=== PATIENT | male | born 1980 | race Caucasian/White ===

== ENCOUNTER 2021-07-28 11:16 | Inpatient (IN) | payer MEDICAID, SELFPAY ==
[~2021-07-28] VITALS: Ht 175.3 cm; Wt 81.6 kg
[2021-07-28 11:23] VITALS: BP_SYST 156
--- NOTE | 2021-07-28 11:26 | NUR ---
AMBULATED TO BED 2, REPORT GIVEN TO NADEEM HERNANDEZ
--- NOTE | 2021-07-28 11:35 | NUR ---
ASSESS PT C/O ABD PAIN DENIES N/V/D ABLE TO EAT AND LUCIO WELL STATED HE HAD ABD PAIN SINCE FRIDAY NO URINARY PROBLEM OVERALL APPEARANCES FAIR DENIES NO PAST MEDICAL HISTORY
[2021-07-28] MEDS ORDERED: NACL 0.9% 1,000 ML IV ONE ×2 (12:00→16:00)
[2021-07-28] MEDS ORDERED: KETOROLAC TROMETHAMINE 30 MG VIAL IVP ONE (12:00)
[2021-07-28 12:16] LABS: BILIRUBIN,URINE NEGATIVE (NEGATIVE); BLOOD, URINE NEGATIVE (NEGATIVE); COLOR,URINE YELLOW (YELLOW); GLUCOSE,URINE NEGATIVE (NEGATIVE); KETONES,URINE NEGATIVE (NEGATIVE); LEUKOCYTE ESTERASE ,URINE NEGATIVE (NEGATIVE); NITRITE, URINE NEGATIVE (NEGATIVE); PROTEIN URINE NEGATIVE (NEGATIVE); UROBILINOGEN,URINE 0.2 (0.2-1.0)
[2021-07-28 12:18] LABS: CLARITY/URINE CLEAR (CLEAR)
[2021-07-28 12:22] LABS: BASOPHILS # (AUTO) 0.1 K/uL (0.0-0.2); BASOPHILS % (AUTO) 0.4 % (0.0-2.0); EOSINOPHILS # (AUTO) 0.1 K/uL (0.0-0.4); EOSINOPHILS % (AUTO) 0.6 % (0.0-4.0); HEMATOCRIT 43.2 % (36-54); HEMOGLOBIN 14.7 g/dL (14.0-18.0); LYMPHOCYTES # (AUTO) 1.3 K/uL (1.0-5.5); LYMPHOCYTES % (AUTO) 9.4 % (20.5-51.5); MEAN CORPUSCULAR HEMOGLOBIN 30 pg (27-31); MEAN CORPUSCULAR HGB CONC 34 % (32-36); MEAN CORPUSCULAR VOLUME 88 fL (79.0-98.0); MONOCYTES # (AUTO) 1.2 K/uL (0.0-1.0); MONOCYTES % (AUTO) 8.9 % (1.7-9.3); NEUTROPHILS # (AUTO) 11.3 K/uL (1.8-7.7); NEUTROPHILS % (AUTO) 80.7 % (40.0-70.0); PLATELET COUNT (AUTO) 387 K/uL (130-430); RED CELL DISTRIBUTION WIDTH 12.6 % (9.0-15.0); WHITE BLOOD COUNT (AUTO) 13.9 K/uL (4.8-10.8)
[2021-07-28 12:32] LABS: CALCIUM 9.7 mg/dL (8.4-11.0); CREATININE 1.14 mg/dL (0.55-1.30); POTASSIUM 3.6 mmol/L (3.5-5.1)
[2021-07-28 12:37] LABS: ALBUMIN 3.7 g/dL (3.4-4.8)
[2021-07-28 12:40] LABS: TOTAL BILIRUBIN 1.9 mg/dL (0.0-1.0)
[2021-07-28] MEDS ORDERED: metroNIDAZOLE 500 mg/NS 100 ML IV ONE (13:30)
--- NOTE | 2021-07-28 14:00 | NUR ---
PT RESTING QUIETLY ON HIS CELLPHONE OVERALL CONDITION STABLE WITHOUT INCIDENT
--- NOTE | 2021-07-28 14:24 | NUR ---
ALBERTO, [facility], CALLED BACK AND STATED OKAY TO ADMIT PER ED ADMITTING, NICK
[2021-07-28] MEDS ORDERED: PIPERACILLIN/TAZO 3.375 GM in NS 50 ML IV ONE (14:45)
[2021-07-28] MEDS ORDERED: ONDANSETRON HCL 4 MG/2 ML VIAL IVP PRN (15:30)
[2021-07-28] MEDS ORDERED: ACETAMINOPHEN 500 MG TABLET PO PRN (15:30)
[2021-07-28] MEDS ORDERED: KETOROLAC TROMETHAMINE 30 MG VIAL IVP PRN (15:30)
[2021-07-28] MEDS ORDERED: ZOLPIDEM TARTRATE 5 MG TABLET PO PRN (15:30)
[2021-07-28] MEDS ORDERED: guaiFENesin/DEXTROMETHORPHAN 10 ML UDC PO PRN (15:30)
[2021-07-28] MEDS ORDERED: DOCUSATE SODIUM 100 MG/10 ML UDC PO PRN (15:30)
[2021-07-28] MEDS ORDERED: HYDROcodone/ACETAMIN 7.5-325 MG TAB PO PRN (15:30)
[2021-07-28] MEDS ORDERED: MORPHINE 2 MG/ML INJ. SYRINGE IVP PRN (15:30)
--- NOTE | 2021-07-28 15:33 | NUR ---
DR. GARCIA SPEAKING WITH DR. LLOYD REGARDING PT STATUS
[2021-07-28] MEDS ORDERED: PIPERACILLIN/TAZOBACTAM 3.375 GM/VIAL (ZOSYN) IV ONE (15:50)
[2021-07-28] MEDS ORDERED: MORPHINE 4 MG INJ. 4 MG/ML VIAL IVP ONE (16:00)
--- NOTE | 2021-07-28 16:30 | NUR ---
PT WAS MED TIME ONE WITH MORPHINE 2MG X2 AND ZOFRAN FOR MID ABD PAIN DENIES ALLERGY MEDS TEACHING GIVEN COMFORT AND SAFETY MAINTAINED PT IS AWARE OF HIS ADMISSION TO THE HOSPITAL AND WHY
--- NOTE | 2021-07-28 17:17 | NUR ---
PT IS BEING TRANSFER TO M/S CONDITION STABLE DENIES PAIN/DISCOMFORT AT THIS TIME
--- NOTE | 2021-07-28 17:32 | NUR ---
ADMISSION NOTES, PT RECEIVED FROM E.R. FOR CHOLEDOLITHIASIS RODYER THE CARE OF DR YIN. PT EDUCATED ON THE USE OF CALL LIGHT TV AND BED CONTROLS.
--- NOTE | 2021-07-28 17:38 | NUR ---
CONSULTATION PAGED/CALLED Reason for Consultation: CHOLEDOCHOLITHIASIS Person Who was Notified: DR GARCIA Consulting Physician: [place] [employer] ATTENDANT DR GRACIA Insurance Verification Representative Specialty: GENERAL SURG Ordering Physician: HUMPHREY
[2021-07-28 17:52] VITALS: BP_SYST 153
[2021-07-28] MEDS ORDERED: FLU VACC QS2021-22(6MOS UP)/PF 0.5 ML/SYR SYRINGE I.M. PRN (18:00)
[2021-07-28] MEDS: D5NS 1,000 ML IV SCH ×2 (18:05→22:55)
[2021-07-28] MEDS ORDERED: NALOXONE HCL 0.4 MG/ML AMP (NARCAN) IVP PRN (19:00)
[2021-07-28] MEDS ORDERED: HYDROmorphone 1 MG/ML INJ. CARTRIDGE IVP ONE (19:00)
--- NOTE | 2021-07-28 19:06 | NUR ---
HIGH ALERT NOTE: Called Dr. YIN back at [phone] identified within the medical roster to verify physician authenticity.
--- NOTE | 2021-07-28 19:30 | NUR ---
Pt requesting medicine for 1010 pain. Day nurse requested 1x med coverage from currently pending approval from pharmacy.
[2021-07-28 20:00] VITALS: BP_SYST 148
[2021-07-28] MEDS ORDERED: HYDROmorphone 1 MG/ML INJ. CARTRIDGE ONE (20:14)
--- NOTE | 2021-07-28 21:30 | NUR ---
Pt sleeping after medication administration. Parents visited to check up on son. Parents updated and will check back in the morning on information regarding surgery.
[2021-07-29] VITALS: BP_SYST 138
[2021-07-29] MEDS: D5NS 1,000 ML IV SCH ×3 (06:59→22:19)
[2021-07-29 07:14] LABS: BASOPHILS % (AUTO) 0.5 % (0.0-2.0); EOSINOPHILS # (AUTO) 0.1 K/uL (0.0-0.4); HEMOGLOBIN 13.8 g/dL (14.0-18.0); LYMPHOCYTES # (AUTO) 1.1 K/uL (1.0-5.5); LYMPHOCYTES % (AUTO) 14.1 % (20.5-51.5); MEAN CORPUSCULAR HEMOGLOBIN 31 pg (27-31); MEAN CORPUSCULAR HGB CONC 34 % (32-36); MEAN CORPUSCULAR VOLUME 89 fL (79.0-98.0); MONOCYTES # (AUTO) 1.2 K/uL (0.0-1.0); MONOCYTES % (AUTO) 16.3 % (1.7-9.3); NEUTROPHILS # (AUTO) 5.2 K/uL (1.8-7.7); NEUTROPHILS % (AUTO) 68.1 % (40.0-70.0); PLATELET COUNT (AUTO) 315 K/uL (130-430); RED BLOOD CELL COUNT(AUTO) 4.49 MIL/uL (4.2-6.2); RED CELL DISTRIBUTION WIDTH 12.6 % (9.0-15.0); WHITE BLOOD COUNT (AUTO) 7.6 K/uL (4.8-10.8)
[2021-07-29 07:58] LABS: PROTHROMBIN TIME 10.9 SECS (9.5-12.5)
[2021-07-29 08:00] VITALS: BP_SYST 110
[2021-07-29 08:35] LABS: CALCIUM 8.5 mg/dL (8.4-11.0); CREATININE 1.06 mg/dL (0.55-1.30); FREE T4 (FREE THYROXINE) 1.2 ng/dl (0.8-1.5); PHOSPHORUS 3.1 mg/dL (2.7-4.5); POTASSIUM 3.7 mmol/L (3.5-5.1); THYROID STIMULATING HORMONE 0.38 uIu/mL (0.36-3.74)
[2021-07-29] MEDS: PANTOPRAZOLE SODIUM 40 MG TAB PO SCH (09:00)
[2021-07-29] MEDS ORDERED: POTASSIUM CHLORIDE 20 MEQ TAB.PRT.SR PO PRN (09:00)
--- NOTE | 2021-07-29 09:00 | NUR ---
DR GARCIA WAS HERE, MD ORDERED FOR MRI OF ABD.
--- NOTE | 2021-07-29 09:30 | NUR ---
PT SLEEPING COMFORTABLY IN BED.
[2021-07-29 16:00] VITALS: BP_SYST 131
--- NOTE | 2021-07-29 18:25 | NUR ---
PT HAS BEEN STABLE THE WHOLE SHIFT, DENIES PAIN THE WHOLE DAY, NO PAIN MED GIVEN. PT AWARE OF THE MRI WITH CONTRAST IN AM. GIVEN CONSENT AND CHECKLIST FORM FOR PT TO FILL UP. WILL ENDORSE TO NIGHT NURSE.
[2021-07-29 20:13] LABS: BARBITURATE, URINE NEGATIVE (NEG <=200); BENZODIAZEPINE, URINE NEGATIVE (NEG <=150); CANNABINOID, URINE NEGATIVE (NEG <=50); COCAINE, URINE NEGATIVE (NEG <=150); METHAMPHETAMINES SCREEN,URINE NEGATIVE (NEG <=500); OPIATE, URINE POSITIVE (NEG <=100); PHENCYCLIDINE SCREEN,URINE NEGATIVE (NEG <=25); URINE AMPHETAMINE NEGATIVE (NEG <=500); URINE METHADONE NEGATIVE (NEG <=200); URINE OXYCODONE SCREEN NEGATIVE (NEG <=100); URINE PROPOXYPHENE SCREEN NEGATIVE (NEG <=300)
[2021-07-29 20:14] LABS: UR TRICYCLIC ANTIDEPRESSANTS NEGATIVE (NEG <=300)
[2021-07-29 20:15] VITALS: BP_SYST 127
--- NOTE | 2021-07-29 20:15 | NUR ---
opening note patient watching T.V comfortable in bed. vitals taken noted to be within normal limits. patient stated that he would like to take a shower.
[2021-07-29 20:34] LABS: ALBUMIN 2.9 g/dL (3.4-4.8); BILIRUBIN,DIRECT 3.3 mg/dL (0.0-0.3); TOTAL BILIRUBIN 4.5 mg/dL (0.0-1.0)
--- NOTE | 2021-07-29 22:30 | NUR ---
patient shower patient was disconnected for his I.V and site was covered. tolerated shower with no signs of syncope noted. I.V was reconnected and patient resting in bed
[2021-07-30 00:10] VITALS: BP_SYST 131
--- NOTE | 2021-07-30 05:01 | NUR ---
ambulate to restroom Patient awake and amulated to restroom. IVF infusing well, no s/sx of infiltration noted. He has no further needs.
[2021-07-30 06:48] LABS: EOSINOPHILS # (AUTO) 0.2 K/uL (0.0-0.4); EOSINOPHILS % (AUTO) 2.4 % (0.0-4.0); HEMATOCRIT 39.8 % (36-54); HEMOGLOBIN 13.6 g/dL (14.0-18.0); LYMPHOCYTES # (AUTO) 1.3 K/uL (1.0-5.5); LYMPHOCYTES % (AUTO) 18.8 % (20.5-51.5); MEAN CORPUSCULAR HEMOGLOBIN 30 pg (27-31); MEAN CORPUSCULAR HGB CONC 34 % (32-36); MEAN CORPUSCULAR VOLUME 89 fL (79.0-98.0); MONOCYTES # (AUTO) 0.7 K/uL (0.0-1.0); MONOCYTES % (AUTO) 9.5 % (1.7-9.3); PLATELET COUNT (AUTO) 320 K/uL (130-430); RED BLOOD CELL COUNT(AUTO) 4.47 MIL/uL (4.2-6.2)
--- NOTE | 2021-07-30 08:00 | NUR ---
AM NOTES KEPT NPO/ FOR MRI TODAY, AMBULATORY, DENIES PAIN.
[2021-07-30 08:07] LABS: BASOPHILS % (AUTO) 0.5 % (0.0-2.0); NEUTROPHILS % (AUTO) 68.8 % (40.0-70.0)
[2021-07-30 08:08] LABS: NEUTROPHILS # (AUTO) 4.9 K/uL (1.8-7.7)
[2021-07-30 08:22] LABS: ALBUMIN 2.8 g/dL (3.4-4.8); CALCIUM 8.6 mg/dL (8.4-11.0); CREATININE 0.97 mg/dL (0.55-1.30); POTASSIUM 3.9 mmol/L (3.5-5.1)
[2021-07-30 09:28] VITALS: BP_SYST 157
[2021-07-30] MEDS: D5NS 1,000 ML IV SCH ×3 (09:32→19:01)
--- NOTE | 2021-07-30 12:00 | NUR ---
MRI DONE BACK FROM MRI.
[2021-07-30 12:28] VITALS: BP_SYST 135
[2021-07-30] MEDS: PANTOPRAZOLE SODIUM 40 MG TAB PO SCH (12:33)
--- NOTE | 2021-07-30 16:07 | NUR ---
Dietitian Recommendations * Consider advance diet if/when medically appropriate LP, RD Please refer to Nutrition Assessment for details. Addendum: 07/30/21 at [address] Amended: Links added.
[2021-07-30 17:00] VITALS: BP_SYST 130
--- NOTE | 2021-07-30 18:00 | NUR ---
LEFT MESSAGE TO DR GARCIA RE MRCP LEFT MESSAGE TO DR GARCIA'S VOICE MAIL REGARDING MRCP RESULTS AND PLAN FOR SURGERY.
--- NOTE | 2021-07-30 19:43 | NUR ---
CLOSING NOTES BOTH EYES ARE RED, PATIENT BROUGHT HIS CLEAR EYE DROPS FOR CLEAR EYES WITH DOCTORS ORDERED. FAMILY AND PATIENT THAT WAITING FOR MD TO CALLBACK RE PLAN FOR SURGERY.
[2021-07-30 20:00] VITALS: BP_SYST 141
--- NOTE | 2021-07-30 21:03 | NUR ---
Dr. Jj Andrews Called in to inform he will be taking patient to surgery tomorrow afternoon. He provided orders; He may be clear liquid till 10am, CMP in am, Consent to read - Lap sol, khrisl open cholangiogram; TORB
[2021-07-31 00:22] VITALS: BP_SYST 134
[2021-07-31] MEDS: D5NS 1,000 ML IV SCH ×3 (02:31→17:40)
[2021-07-31 07:36] LABS: BASOPHILS # (AUTO) 0.1 K/uL (0.0-0.2); BASOPHILS % (AUTO) 0.9 % (0.0-2.0); EOSINOPHILS # (AUTO) 0.2 K/uL (0.0-0.4); EOSINOPHILS % (AUTO) 2.5 % (0.0-4.0); HEMATOCRIT 42.1 % (36-54); LYMPHOCYTES # (AUTO) 1.5 K/uL (1.0-5.5); MEAN CORPUSCULAR HEMOGLOBIN 30 pg (27-31); MEAN CORPUSCULAR HGB CONC 33 % (32-36); MEAN CORPUSCULAR VOLUME 89 fL (79.0-98.0); MONOCYTES # (AUTO) 0.6 K/uL (0.0-1.0); MONOCYTES % (AUTO) 9.6 % (1.7-9.3); NEUTROPHILS # (AUTO) 3.9 K/uL (1.8-7.7); PLATELET COUNT (AUTO) 386 K/uL (130-430); RED BLOOD CELL COUNT(AUTO) 4.72 MIL/uL (4.2-6.2); WHITE BLOOD COUNT (AUTO) 6.1 K/uL (4.8-10.8)
[2021-07-31 07:50] LABS: ALBUMIN 2.8 g/dL (3.4-4.8); CALCIUM 8.5 mg/dL (8.4-11.0); CREATININE 0.93 mg/dL (0.55-1.30); POTASSIUM 3.7 mmol/L (3.5-5.1); TOTAL BILIRUBIN 1.2 mg/dL (0.0-1.0)
[2021-07-31 08:00] VITALS: BP_SYST 136
--- NOTE | 2021-07-31 08:00 | NUR ---
Opening notes: Received patient awake, resting in bed. No distress and nonlabored breathing on room air. Presently denies pain, reports abdominal discomfort though does not want pain med. IVF infusing via IV to L wrist, no sign of infiltration noted. Bed is locked on lowest position, side rails up 2x and call light w/in reach. He has been ambulating with steady gait to restroom and does not have bed alarm on.
[2021-07-31] MEDS: PANTOPRAZOLE SODIUM 40 MG TAB PO SCH (09:02)
[2021-07-31 11:13] VITALS: BP_SYST 136
[2021-07-31] MEDS ORDERED: [UNRECOGNIZED DRUG - OTHER] OP PRN (15:00)
[2021-07-31] MEDS ORDERED: CLEAR EYES OP PRN (15:00)
--- NOTE | 2021-07-31 17:20 | NUR ---
Pt off unit: Pt off unit for procedure, VVS, has been NPO, IV intact.
[2021-07-31] MEDS ORDERED: ONDANSETRON HCL 4 MG/2 ML VIAL IVP ONE (17:34)
[2021-07-31] MEDS ORDERED: BUPIVACAINE /PF 0.25% 30 ML VIAL INJ ONE (17:34)
[2021-07-31] MEDS ORDERED: HYDROmorphone 2 MG/ML VIAL IVP ONE (17:34)
[2021-07-31] MEDS ORDERED: SUCCINYLCHOLINE CHLORIDE 20 MG/ML(QUELICIN) IVP ONE (17:34)
[2021-07-31] MEDS ORDERED: METOCLOPRAMIDE HCL 10 MG/2 ML VIAL IVP ONE (17:34)
[2021-07-31] MEDS ORDERED: MIDAZOLAM HCL 5 MG/5 ML VIAL IVP ONE (17:34)
[2021-07-31] MEDS ORDERED: PHENYLEPHRINE HCL 10 MG/ML VIAL (NEOSYNEPHRINE) IV ONE (17:34)
[2021-07-31] MEDS ORDERED: LR 1,000 ML IV.SOLN IV ONE (17:34)
[2021-07-31] MEDS ORDERED: LIDOCAINE 1% 10 MG/ML, 20 ML MDV INJ ONE (17:34)
[2021-07-31] MEDS ORDERED: LIDOCAINE/EPI 1% 1:100000 20 ML VIAL INJ ONE (17:34)
[2021-07-31] MEDS ORDERED: fentaNYL CITRATE 250 MCG/5 ML AMP IV ONE (17:34)
[2021-07-31] MEDS ORDERED: PROPOFOL 200MG/ 20ML VIAL (DIPRIVAN) IV ONE (17:34)
[2021-07-31] MEDS ORDERED: KETOROLAC TROMETHAMINE 30 MG VIAL IVP ONE (17:34)
[2021-07-31] MEDS ORDERED: SEVOFLURANE 15 MIN GAS INH ONE (17:34)
[2021-07-31] MEDS ORDERED: NS 1000 ML IV.SOLN IV ONE (17:34)
[2021-07-31] MEDS ORDERED: GLYCOPYRROLATE 0.2 MG/ML VIAL IJ ONE (17:34)
[2021-07-31] MEDS ORDERED: NS IRRIG SOLN 1000 ML IR ONE (17:34)
[2021-07-31] MEDS ORDERED: HYDROcodone/ACETAMIN 5-325 MG TAB (NORCO/ VICODIN) PO PRN (18:00)
[2021-07-31] MEDS ORDERED: HYDROmorphone 1 MG/ML INJ. CARTRIDGE IVP PRN (18:15)
[2021-07-31] MEDS ORDERED: ONDANSETRON HCL 4 MG/2 ML VIAL IVP PRN (18:15)
[2021-07-31] MEDS ORDERED: KETOROLAC TROMETHAMINE 30 MG VIAL IVP PRN (18:15)
[2021-07-31] MEDS ORDERED: HYDROmorphone 2 MG/ML VIAL IVP PRN (18:15)
--- NOTE | 2021-07-31 18:47 | NUR ---
Closing notes: Pt still off floor, will endorse to drum builder.
[2021-07-31 21:15] VITALS: BP_SYST 136
--- NOTE | 2021-07-31 21:15 | NUR ---
RECEIVED REPORT FROM DONNA, PATIENT FROM PACU, S/P OPEN CHOLECYSTECTOMY. PATIENT IS AWAKE, ALERT AND ORIENTED X4, VERBALLY RESPONSIVE, NO ACUTE DISTRESS NOTED. DRESSING TO RIGHT SIDE ABDOMEN CLEAN, DRY, AND INTACT. NOTED KHADRA DRAINAGE WITH SEROUS SANGUINEOUS ABOUT 10 CC. PATIENT DENIES ANY PAIN OR DISCOMFORT AT THIS TIME. STARTED PATIENT ON ICE CHIP WHICH HE TOLERATED IT WELL. WILL CONTINUE TO MONITOR VS, PAIN, OR SURGICAL SITE. CALLED FATHER TO INFORM HIM OF THE PATIENT'S CONDITION AND BACK TO THE UNIT. VSS.
[2021-08-01] MEDS: MORPHINE 4 MG INJ. 4 MG/ML VIAL IVP PRN ×2 (01:13→06:20)
[2021-08-01] MEDS: KETOROLAC TROMETHAMINE 30 MG VIAL IVP SCH ×4 (01:17→22:16)
[2021-08-01] MEDS: GABAPENTIN 300 MG CAPSULE PO SCH ×4 (01:17→22:17)
[2021-08-01] MEDS ORDERED: PIPERACILLIN/TAZOBACTAM 3.375 GM/VIAL (ZOSYN) IV ONE ×2 (01:22→06:50)
[2021-08-01] MEDS: D5NS 1,000 ML IV SCH ×3 (01:29→17:11)
[2021-08-01] MEDS: PIPERACILLIN/TAZO 3.375/DEX-IS 50 ML IV SCH ×4 (01:38→17:11)
[2021-08-01 06:53] LABS: BASOPHILS % (AUTO) 0.3 % (0.0-2.0); EOSINOPHILS % (AUTO) 0.1 % (0.0-4.0); HEMATOCRIT 36.6 % (36-54); HEMOGLOBIN 12.4 g/dL (14.0-18.0); LYMPHOCYTES # (AUTO) 1.1 K/uL (1.0-5.5); LYMPHOCYTES % (AUTO) 11.9 % (20.5-51.5); MEAN CORPUSCULAR HEMOGLOBIN 30 pg (27-31); MEAN CORPUSCULAR HGB CONC 34 % (32-36); MEAN CORPUSCULAR VOLUME 89 fL (79.0-98.0); MONOCYTES # (AUTO) 0.9 K/uL (0.0-1.0); MONOCYTES % (AUTO) 9.2 % (1.7-9.3); NEUTROPHILS # (AUTO) 7.5 K/uL (1.8-7.7); NEUTROPHILS % (AUTO) 78.5 % (40.0-70.0); PLATELET COUNT (AUTO) 382 K/uL (130-430); RED BLOOD CELL COUNT(AUTO) 4.11 MIL/uL (4.2-6.2); WHITE BLOOD COUNT (AUTO) 9.5 K/uL (4.8-10.8)
[2021-08-01] MEDS: ACETAMINOPHEN 500 MG TABLET PO SCH ×4 (07:37→22:17)
[2021-08-01 07:45] LABS: CALCIUM 8.4 mg/dL (8.4-11.0); CREATININE 1.1 mg/dL (0.55-1.30); POTASSIUM 3.4 mmol/L (3.5-5.1)
[2021-08-01 08:00] VITALS: BP_SYST 120
--- NOTE | 2021-08-01 09:04 | NUR ---
OPENING NOTES: PATIENT EATING BREAKFAST. HOB ELEVATED. BREATHING EVEN AND NON LABORED TO RA. IV INFUSING WELL. KHADRA DRAIN SECURED. SPAR MACHINE OPERATOR DRAINED 40 ML. BED LOCKED, ALARM ON AND IN LOWEST POSITION. FALL, SAFETY AND ASPIRATION MEASURES PROVIDED. CALL LIGHT WITHIN REACH
[2021-08-01 10:14] LABS: ALBUMIN 2.6 g/dL (3.4-4.8); BILIRUBIN,DIRECT 0.5 mg/dL (0.0-0.3)
[2021-08-01] MEDS: PANTOPRAZOLE SODIUM 40 MG TAB PO SCH (10:16)
[2021-08-01] MEDS: ENOXAPARIN SODIUM 40 MG/0.4 ML SYRINGE SUBCUT SCH (10:18)
[2021-08-01] MEDS: HYDROmorphone 1 MG/ML INJ. CARTRIDGE IM PRN (10:20)
[2021-08-01] MEDS ORDERED: HYDR-3917 PO (13:36)
[2021-08-01 15:58] VITALS: BP_SYST 115
--- NOTE | 2021-08-01 19:30 | NUR ---
CLOSING NOTES: PATIENT RESTING IN BED. NO S/S OF ACUTE DISTRESS NOTED. DENIES ANY DISCOMFORT AT THIS. IV INFUSING WELL. CALL LIGHT WITHIN REACH.
[2021-08-01 20:57] VITALS: BP_SYST 129
[2021-08-02] VITALS: BP_SYST 126
[2021-08-02] MEDS: HYDROmorphone 1 MG/ML INJ. CARTRIDGE IM PRN (00:41)
[2021-08-02] MEDS: D5NS 1,000 ML IV SCH ×4 (00:45→21:35)
[2021-08-02] MEDS: PIPERACILLIN/TAZO 3.375/DEX-IS 50 ML IV SCH ×2 (01:15→07:15)
[2021-08-02 04:00] VITALS: BP_SYST 126
[2021-08-02] MEDS: ACETAMINOPHEN 500 MG TABLET PO SCH ×4 (07:13→21:48)
[2021-08-02] MEDS: KETOROLAC TROMETHAMINE 30 MG VIAL IVP SCH ×3 (07:14→22:00)
[2021-08-02 07:16] LABS: BASOPHILS % (AUTO) 0.4 % (0.0-2.0); EOSINOPHILS # (AUTO) 0.2 K/uL (0.0-0.4); EOSINOPHILS % (AUTO) 2.1 % (0.0-4.0); HEMATOCRIT 33.9 % (36-54); HEMOGLOBIN 11.5 g/dL (14.0-18.0); LYMPHOCYTES # (AUTO) 1.2 K/uL (1.0-5.5); LYMPHOCYTES % (AUTO) 16.3 % (20.5-51.5); MEAN CORPUSCULAR HEMOGLOBIN 31 pg (27-31); MEAN CORPUSCULAR HGB CONC 34 % (32-36); MEAN CORPUSCULAR VOLUME 90 fL (79.0-98.0); MONOCYTES # (AUTO) 0.6 K/uL (0.0-1.0); MONOCYTES % (AUTO) 8.4 % (1.7-9.3); NEUTROPHILS # (AUTO) 5.3 K/uL (1.8-7.7); NEUTROPHILS % (AUTO) 72.8 % (40.0-70.0); PLATELET COUNT (AUTO) 326 K/uL (130-430); RED BLOOD CELL COUNT(AUTO) 3.77 MIL/uL (4.2-6.2); RED CELL DISTRIBUTION WIDTH 13.2 % (9.0-15.0); WHITE BLOOD COUNT (AUTO) 7.3 K/uL (4.8-10.8)
[2021-08-02 08:00] VITALS: BP_SYST 122
[2021-08-02 08:17] LABS: CALCIUM 8.2 mg/dL (8.4-11.0); CREATININE 0.91 mg/dL (0.55-1.30); POTASSIUM 3.1 mmol/L (3.5-5.1)
[2021-08-02] MEDS: GABAPENTIN 300 MG CAPSULE PO SCH ×3 (08:58→21:49)
[2021-08-02] MEDS: PANTOPRAZOLE SODIUM 40 MG TAB PO SCH (08:58)
[2021-08-02] MEDS: ENOXAPARIN SODIUM 40 MG/0.4 ML SYRINGE SUBCUT SCH (09:02)
[2021-08-02] MEDS ORDERED: metroNIDAZOLE 500 MG TABLET PO ONE (10:00)
--- NOTE | 2021-08-02 10:00 | NUR ---
NOTE Dr Whatley on the floor to assess pt. MD was informed that pt's IV came off and pt has no IV at this time. PO antibiotics were requested. MD ordered PO antibiotics.
[2021-08-02 12:00] VITALS: BP_SYST 124
[2021-08-02] MEDS: metroNIDAZOLE 500 MG TABLET PO SCH ×2 (14:53→21:49)
[2021-08-02 16:50] VITALS: BP_SYST 123
--- NOTE | 2021-08-02 17:35 | NUR ---
Note Dr Maine Andrews (surgeon) on the floor to assess pt and to answer questions/concerns at this time.
--- NOTE | 2021-08-02 17:41 | NUR ---
Dr Maine Andrews stated pt can be discharged home, discharge instructions given to pt by .
--- NOTE | 2021-08-02 18:25 | NUR ---
Note Pt got OOB to restroom this afternoon. Pt was encouraged to use IS q1 10X while awake. Abdominal incision dressing CDI all shift. KHADRA drain intact and draining well at RLQ. Pt was checked on q1' and PRN all shift for needs and care. Pt's bed in low position all shift. Pt encouraged to move side to side and sit on side of bed for meals. Pain tolerable all shift. Pt has had no IV all shift. No needs noted. Call light within reach.
[2021-08-02 21:09] VITALS: BP_SYST 138
[2021-08-03 01:33] VITALS: BP_SYST 133
[2021-08-03] MEDS: D5NS 1,000 ML IV SCH (05:00)
[2021-08-03] MEDS: KETOROLAC TROMETHAMINE 30 MG VIAL IVP SCH (06:00)
[2021-08-03] MEDS: metroNIDAZOLE 500 MG TABLET PO SCH (06:52)
[2021-08-03] MEDS: ACETAMINOPHEN 500 MG TABLET PO SCH (06:53)
[2021-08-03 08:15] VITALS: BP_SYST 131
--- NOTE | 2021-08-03 08:15 | NUR ---
INITIAL ROUNDS Received pt AAOX4, no s/s resp distress, no c/o pain or discomfort. Dressing to abd clean dry and intact. Noted KHADRA drain to right abd with minimal amount of pink fluid. Pt instructed on how how to empty the KHADRA drain-teach back done. Pain management, disease process, skin and safety discussed-teach back done. Call light within reach.
[2021-08-03 08:49] VITALS: BP_SYST 131
[2021-08-03] MEDS: GABAPENTIN 300 MG CAPSULE PO SCH (09:21)
[2021-08-03] MEDS: PANTOPRAZOLE SODIUM 40 MG TAB PO SCH (09:21)
[2021-08-03] MEDS: ENOXAPARIN SODIUM 40 MG/0.4 ML SYRINGE SUBCUT SCH (09:24)
--- NOTE | 2021-08-03 11:36 | NUR ---
PATIENT DISCHARGED Patient given medication reconciliation form and D/C instructions. Exit Care explained and provided. Patient verbalized his understanding. MD discussed with patient the results and treatment provided. Ambulatory with steady gait for discharge to home. Patient in stable condition, ID band removed. Patient educated on pain management. All belongings sent with patient. Patient left floor via wheelchair to private vehicle in no distress.
== END 2021-08-03 11:36 | disposition home or self-care (01) | DRG 710 ==
LOC: SED 11:16 → STU 15:03 → SMU 17:15 → STU 17:27 → SMU 17:36
PROVIDERS: ADMIT Family Medicine; ATTEND Family Medicine
PROC: 0FJ44ZZ Inspection of Gallbladder, Percutaneous Endoscopic Approach (ICD-10-PCS; 2021-07-31)
PROC: BF131ZZ Fluoroscopy of Gallbladder and Bile Ducts using Low Osmolar Contrast (ICD-10-PCS; 2021-07-31)
PROC: 0FT40ZZ Resection of Gallbladder, Open Approach (ICD-10-PCS; principal; 2021-07-31 17:39)
DX: A41.9 Sepsis, unspecified organism (principal); G93.41 Metabolic encephalopathy; K80.62 Calculus of gallbladder and bile duct with acute cholecystitis without obstruction; E87.1 Hypo-osmolality and hyponatremia; R74.01 Elevation of levels of liver transaminase levels; Z20.822 Contact with and (suspected) exposure to COVID-19; Z79.899 Other long term (current) drug therapy
CPT/HCPCS: 36415; 71045; 74181; 76000; 76376; 76700-TC; 80048; 80053; 80061; 80076; 80307; 81003; 82150; 83036; 83605; 83690; 83735; 83880; 84100; 84439; 84443; 84484; 85025; 85610-TC; 85730-TC; 87040-TC; 88304; 93005; 96374; 99285; C1727; J0330; J1170; J1650; J1885; J2001; J2250; J2270; J2370; J2405; J2543; J2704; J2765; J3010; J3490; J7030; J7120; Q9967